=== PATIENT | female | born 1965 | race Caucasian/White ===

== ENCOUNTER 2016-10-01 14:07 | Emergency (ER) | payer BC ==
[2016-10-01] MEDS ORDERED: NS 500 ML IV ONE (14:09)
[2016-10-01] MEDS ORDERED: ONDANSETRON DISINTEGRATING 4 MG TAB PO ONE (14:10)
[2016-10-01 14:43] VITALS: TEMP 98.1
[2016-10-01] MEDS ORDERED: LORazepam 2 MG/ML INJ IVP ONE (14:54)
[2016-10-01] MEDS ORDERED: ONDANSETRON 4 MG/2 ML VIAL IVP ONE (14:54)
[2016-10-01 15:46] LABS: % IMMATURE GRANULYOCYTES 0.3 % (0.0-1.1); ABSOLUTE IMMATURE GRANULOCYTES 0.02 10^3/uL (0.00-0.10); ADD DIFF? NO; ADD MORPH? NO; ADD SCAN? NO; ATYPICAL LYMPHOCYTE FLAG 10 (0-99); FRAGMENT RBC FLAG 0 (0-99); HEMATOCRIT 47.2 % (38.0-47.0); HEMOGLOBIN 16.6 g/dL (12.6-16.3); LEFT SHIFT FLG 0 (0-99); LIPEMIA HEMOLYSIS FLAG 90 (0-99); MEAN CELL HEMOGLOBIN 32.2 pg (27.9-34.1); MEAN CELL HEMOGLOBIN CONCENTR. 35.2 g/dL (32.4-36.7); MEAN CELL VOLUME 91.5 fL (81.5-99.8); MEAN PLATELET VOLUME 11.2 fL (8.7-11.7); PLATELET CLUMPS FLAG 0 (0-99); PLATELET COUNT 247 10^3/uL (150-400); RED BLOOD CELL COUNT 5.16 10^6/uL (4.18-5.33)
[2016-10-01 15:52] LABS: ALBUMIN 4.3 g/dL (3.5-5.0); CALCIUM 9.6 mg/dL (8.5-10.4); POTASSIUM 3.6 mEq/L (3.5-5.2); TOTAL PROTEIN 7.3 g/dL (6.3-8.2)
[2016-10-01] MEDS ORDERED: NS 1,000 ML IV ONE (15:54)
--- NOTE | 2016-10-01 17:40 | UCPHY ---
H & P Time Seen by Provider: 10/01/16 15:12 Patient Type: Established HPI/ROS: 51-year-old female presents complaining of nausea. States she believes she may be constipated. Review of systems General no fever no chills no weakness HEENT no eye pain no eye discharge. No eye redness, no sore throat Respiratory no cough, no shortness of breath Cardiac no chest pain, no peripheral edema GI no abdominal pain, no diarrhea, positive constipation, positive nausea, no vomiting no flank pain, no hematuria, no dysuria Musculoskeletal no myalgias, no joint pain Heme no easy bruising, no easy bleeding Endo no polyuria, no polydipsia Skin no rashes, no pruritus Neuro no syncope, no dizziness, no headaches Psych is no suicidal ideation, no homicidal ideation Past Medical/Surgical History: Depression/anxiety Social History: Denies alcohol or drug use Smoking Status: Never smoked Physical Exam: 51-year-old female alert and oriented no acute distress nontoxic appearance HEENT atraumatic normocephalic, extraocular muscles intact, anicteric Oropharynx negative for erythema negative exudate, tolerating her own secretions Neck supple no meningismus Lungs clear to auscultation bilaterally Heart regular rate and rhythm without murmur rub or gallop Abdomen nondistended normoactive bowel sounds soft nontender Back no CVA tenderness, no step-offs, no spinal tenderness Extremities no cyanosis clubbing or edema Neuro alert and oriented, no focal deficits Constitutional: Initial Vital Signs Temperature (C) 36.7 C 10/01/16 14:38 Heart Rate 96 10/01/16 14:38 Respiratory Rate 18 10/01/16 14:38 O2 Sat (%) 100 10/01/16 14:38 O2 Delivery Mode Room Air O2 (L/minute) 2 Allergies/Adverse Reactions: No Known Allergies Allergy (Verified 10/01/16 14:38) Home Medications: Medication Instructions Recorded Lexapro 10/01/16 Melatonin 10/01/16 Wellbutrin Sr 10/01/16 Medical Decision Making Procedures: Patient seen and evaluated for nausea Physical exam benign Labs all within normal limits Impression Nausea Plan Ondansetron Follow-up PCP - Data Points Laboratory Results: Laboratory Results 10/01/16 14:57 10/01/16 14:57 Medications Given: Discontinued Medications Sodium Chloride (Ns) 500 mls @ 0 mls/hr IV EDNOW ONE PRN Reason: As Directed Stop: 10/01/16 14:10 Last Admin: 10/01/16 14:54 Dose: 500 mls Sodium Chloride (Ns) 1,000 mls @ 0 mls/hr IV ONCE ONE PRN Reason: Wide Open Stop: 10/01/16 15:55 Last Admin: 10/01/16 15:54 Dose: 1,000 mls Lorazepam (Ativan Injection) 1 mg IVP EDNOW ONE Stop: 10/01/16 14:55 Last Admin: 10/01/16 15:00 Dose: 1 mg Ondansetron HCl (Zofran Odt) 4 mg PO EDNOW ONE Stop: 10/01/16 14:11 Last Admin: 10/01/16 14:14 Dose: 4 mg Ondansetron HCl (Zofran) 4 mg IVP EDNOW ONE Stop: 10/01/16 14:55 Last Admin: 10/01/16 15:05 Dose: 4 mg Ondansetron HCl (Zofran Odt 4 Mg Prepack#2) 1 btl TAKEHOME EDNOW ONE Stop: 10/01/16 17:47 Last Admin: 10/01/16 18:00 Dose: 1 btl Departure - Departure Disposition: Home, Routine, Self-Care Clinical Impression: Nausea Condition: Good Instructions: Acute Nausea and Vomiting (ED) Additional Instructions: Follow-up with your doctor in 1-2 days if you continue to have symptoms Referrals: Nicolasa Ann MD [Primary Care Provider] - As per Instructions - PQRS PQRS Measurement: na
[2016-10-01] MEDS ORDERED: ONDANSETRON 4MG PREPACK#2 BTL TAKEHOME ONE (17:46)
[2016-10-01 19:03] VITALS: BP 94/55; PULSE 90; RESP 16; O2SAT 95
== END 2016-10-01 18:05 | disposition home or self-care (01) ==
LOC: CED 14:07
DX: R11.0 Nausea (principal)
CPT/HCPCS: 80053-PO; 83690-PO; 85025-PO; 87400-PO; J2405

== ENCOUNTER 2017-05-19 19:45 | Emergency (ER) | payer BC ==
[2017-05-19 20:03] VITALS: PULSE 75
[2017-05-19] MEDS ORDERED: ONDANSETRON DISINTEGRATING 4 MG TAB PO ONE (20:12)
[2017-05-19] MEDS ORDERED: ONDANSETRON 4MG PREPACK#2 BTL TAKEHOME ONE (20:12)
--- NOTE | 2017-05-19 20:53 | EDPHY ---
H & P Time Seen by Provider: 05/19/17 19:51 HPI/ROS: 52-year-old female presents complaining of nausea and vomiting following taking her colon prep for colonoscopy. She denies abdominal pain she denies fevers or chills. Review of systems General no fever no chills no weakness HEENT no eye pain no eye discharge. No eye redness, no sore throat Respiratory no cough, no shortness of breath Cardiac no chest pain, no peripheral edema GI no abdominal pain, no diarrhea, no constipation, positive nausea positive vomiting no flank pain, no hematuria, no dysuria Musculoskeletal no myalgias, no joint pain Heme no easy bruising, no easy bleeding Endo no polyuria, no polydipsia Skin no rashes, no pruritus Neuro no syncope, no dizziness, no headaches Psych is no suicidal ideation, no homicidal ideation Past Medical/Surgical History: Depression anxiety Social History: Denies alcohol or drug use Smoking Status: Never smoked Physical Exam: Alert and oriented in no acute distress nontoxic appearance, afebrile Atraumatic normocephalic Neck no JVD Lungs clear to auscultation, no respiratory distress Heart regular rate and rhythm Abdomen-nondistended normal bowel sounds soft nontender Extremities no cyanosis clubbing edema Constitutional: Initial Vital Signs Heart Rate 75 05/19/17 20:01 Respiratory Rate 16 05/19/17 20:01 Blood Pressure 115/73 05/19/17 20:01 O2 Sat (%) 98 05/19/17 20:01 O2 Delivery Mode Room Air Allergies/Adverse Reactions: No Known Allergies Allergy (Verified 05/19/17 20:00) Home Medications: Medication Instructions Recorded Lexapro 10/01/16 Melatonin 10/01/16 Wellbutrin Sr 10/01/16 Medical Decision Making ED Course/Re-evaluation: Patient seen and evaluated for nausea and vomiting following taking her colon prep for colonoscopy. Patient given ondansetron 4 mg ODT, with marked relief. Impression Nausea, vomiting secondary to medication Plan Discharge home Return as needed - Data Points Medications Given: Discontinued Medications Ondansetron HCl (Zofran Odt) 4 mg PO EDNOW ONE Stop: 05/19/17 20:13 Last Admin: 05/19/17 20:22 Dose: 4 mg Ondansetron HCl (Zofran Odt 4 Mg Prepack#2) 1 btl TAKEHOME EDNOW ONE Stop: 05/19/17 20:13 Last Admin: 05/19/17 20:23 Dose: 1 btl Departure - Departure Disposition: Home, Routine, Self-Care Clinical Impression: Nausea & vomiting Condition: Good Instructions: Ondansetron (By mouth), Acute Nausea and Vomiting (ED) Referrals: Seth Ellis DO [Primary Care Provider] - As per Instructions
[2017-05-19 20:54] VITALS: BP 110/70; RESP 14; TEMP 97.9; O2SAT 96
== END 2017-05-19 21:06 | disposition home or self-care (01) ==
LOC: CED 19:45
DX: R11.2 Nausea with vomiting, unspecified (principal)